=== PATIENT | male | born 1955 | race Caucasian/White ===

== ENCOUNTER 2021-02-15 11:02 | Observation (INO) | payer MEDICARE ==
[2021-02-15] MEDS ORDERED: Aspirin Chewable 81 MG TAB ONE (11:37)
[2021-02-15] MEDS ORDERED: Nitroglycerin 2% Ointment 1 INCH/1 GM Packet ONE (11:37)
[2021-02-15 12:03] LABS: #Basophils 0.1 10x3/uL (0.0-0.2); #Eosinphils 0.1 10x3/uL (0.0-0.5); %Basophils 0.6 % (0.0-2.0); %Eosinophils 0.7 % (0.0-6.0); %Lymphocytes 30.5 % (18.0-47.0); %Monocytes 7.2 % (0.0-10.0); Hemoglobin 14.1 g/dL (13.5-17.5); Mean Corpuscular HGB CONC 31.1 g/dL (32.0-36.0); Mean Corpuscular Hemoglobin 28.2 pg (27.0-33.0); Mean Corpuscular Volume 90.8 fl (81.2-95.1); Mean Platelet Volume 9.3 fl (7.4-10.4); Platelet Count 341 10x3/uL (150-450); RBC Distribution Width 13.9 % (11.5-14.5); White Blood Cell (WBC) Count 13.8 10x3/uL (3.5-10.5)
[2021-02-15 12:21] LABS: ALT (SGPT) 23 U/L (8-55); AST (SGOT) 15 U/L (5-34); Albumin 4.1 g/dL (3.4-4.8); Alkaline Phosphatase 108 U/L (40-110); Anion Gap 17 mmol/L (10-20); BUN (Urea Nitrogen) 14 mg/dL (8.4-25.7); Bilirubin, Total 0.4 mg/dL (0.2-1.2); Calc. Creatinine Clearance 0 mL/min (70-130); Calcium 9.8 mg/dL (7.8-10.44); Carbon Dioxide 23 mmol/L (23-31); Chloride 103 mmol/L (98-107); Globulin 4.9 g/dL (2.4-3.5); Glucose 156 mg/dL (80-115); Potassium 3.9 mmol/L (3.5-5.1); Sodium 139 mmol/L (136-145)
[2021-02-15] MEDS ORDERED: Ondansetron PF 4 MG/2 ML Vial ONE (12:47)
[2021-02-15] MEDS ORDERED: Morphine 4 MG/ML VIAL ONE (12:47)
[2021-02-15] MEDS ORDERED: HYDROcodone/Acetaminophen 7.5/325 mg Tablet PO PRN (13:34)
[2021-02-15] MEDS ORDERED: Ondansetron PF 4 MG/2 ML Vial IVP PRN (13:34)
[2021-02-15] MEDS ORDERED: Nitroglycerin 0.4 MG TAB (25 Tab Bottle) SL PRN (13:39)
[2021-02-15] MEDS ORDERED: Enoxaparin Sodium 40 MG/0.4 ML SYRINGE SC SCH ×2 (13:45→17:00)
[2021-02-15] MEDS ORDERED: Lactated Ringer's 1,000 ML IV SCH (14:00)
[2021-02-15 14:42] LABS: Troponin I 0.026 ng/mL (< 0.028)
[2021-02-15 15:58] VITALS: BMI 42.9
[2021-02-15 17:56] LABS: Troponin I 0.339 ng/mL (< 0.028)
[2021-02-15] MEDS: Acetaminophen 325 MG TAB PO PRN ×2 (19:24→22:50)
[2021-02-15 20:41] LABS: Hemoglobin A1c 7.2 % (4.0-6.0)
[2021-02-15] MEDS: Famotidine/PF 20 mg/2ml Vial SLOW IVP SCH (21:56)
[2021-02-15] MEDS: Metoprolol Tartrate 25 MG TAB PO SCH (21:56)
[2021-02-15] MEDS: Nitroglycerin 2% Ointment 1 INCH/1 GM Packet TOP SCH (21:56)
[2021-02-16 00:48] LABS: CKMB 173.1 ng/mL (0-6.6)
[2021-02-16] MEDS ORDERED: Enoxaparin Sodium 40 MG/0.4 ML SYRINGE SC SCH ×2 (01:00→09:00)
[2021-02-16] MEDS ORDERED: Enoxaparin Sodium 100 MG/ML SYRINGE SC SCH ×2 (01:00→09:00)
[2021-02-16] MEDS ORDERED: Enoxaparin Sodium 60 MG/0.6 ML SYRINGE SC SCH ×2 (01:00→01:15)
[2021-02-16 03:47] LABS: #Basophils 0.1 10x3/uL (0.0-0.2); #Eosinphils 0.1 10x3/uL (0.0-0.5); #Neutrophils 9.5 10x3/uL (1.5-8.4); %Basophils 0.4 % (0.0-2.0); %Eosinophils 0.7 % (0.0-6.0); %Lymphocytes 21.4 % (18.0-47.0); %Monocytes 7.5 % (0.0-10.0); %Neutrophils 69.6 % (40.0-75.0); Hemoglobin 12.6 g/dL (13.5-17.5); Mean Corpuscular HGB CONC 30.6 g/dL (32.0-36.0); Mean Corpuscular Hemoglobin 27.9 pg (27.0-33.0); Mean Corpuscular Volume 91.4 fl (81.2-95.1); Mean Platelet Volume 9.2 fl (7.4-10.4); Platelet Count 288 10x3/uL (150-450); RBC Distribution Width 14.1 % (11.5-14.5); Red Blood Cell (RBC) Count 4.51 10x6/uL (4.32-5.72); White Blood Cell (WBC) Count 13.7 10x3/uL (3.5-10.5)
[2021-02-16 04:01] LABS: Prothrombin Time 10.9 sec (9.5-12.1)
[2021-02-16 04:09] LABS: Anion Gap 12 mmol/L (10-20); BUN (Urea Nitrogen) 14 mg/dL (8.4-25.7); Calc. Creatinine Clearance 92 mL/min (70-130); Calcium 8.6 mg/dL (7.8-10.44); Carbon Dioxide 26 mmol/L (23-31); Cardiac Risk 4.8 (Less than 4.5); Chloride 104 mmol/L (98-107); Cholesterol 144 mg/dl (< 200 Desired); Glucose 113 mg/dL (80-115); HDL Cholesterol 30 mg/dL (>60 Neg Risk); LDL Cholesterol, Calculated 96 mg/dL; Potassium 4.3 mmol/L (3.5-5.1); Sodium 138 mmol/L (136-145); Triglycerides 90 mg/dL (Less than 150)
[2021-02-16] MEDS: Nitroglycerin 2% Ointment 1 INCH/1 GM Packet TOP SCH ×2 (06:21→15:15)
[2021-02-16 06:54] LABS: CKMB 282.8 ng/mL (0-6.6)
[2021-02-16] MEDS ORDERED: Aspirin 81 mg Enteric Coated Tablet PO SCH (09:00)
[2021-02-16] MEDS ORDERED: Heparin 10,000 UNITS/ 10 ML VIAL ONE (09:21)
[2021-02-16] MEDS ORDERED: Lidocaine 1% (PF) 30 ML VIAL ONE (09:21)
[2021-02-16] MEDS ORDERED: Nitroglycerin 50 MG/250 ML BOT 250 ML ONE (09:21)
[2021-02-16] MEDS ORDERED: Adenosine 6 MG/2 ML VIAL ONE (09:21)
[2021-02-16] MEDS ORDERED: Sodium Chloride 0.9% 1,000 ML ONE (09:22)
[2021-02-16 09:26] LABS: SARS-CoV-2 NAA Rapid Test Not Detected (NotDetected)
[2021-02-16] MEDS: Famotidine/PF 20 mg/2ml Vial SLOW IVP SCH (09:45)
[2021-02-16] MEDS: Metoprolol Tartrate 25 MG TAB PO SCH (09:45)
[2021-02-16] MEDS ORDERED: Fentanyl 100 MCG/2 ML VIAL ONE (10:22)
[2021-02-16] MEDS ORDERED: Midazolam HCl 5 mg/5 ml Vial ONE (10:22)
[2021-02-16] MEDS ORDERED: Nitroglycerin 0.4 MG TAB (25 Tab Bottle) SL PRN (11:57)
[2021-02-16] MEDS ORDERED: Sodium Chloride 0.9% 200 ML IV PRN (11:57)
[2021-02-16] MEDS ORDERED: Acetaminophen/Codeine 30-300mg Tablet PO PRN ×2 (11:57)
[2021-02-16] MEDS ORDERED: Sodium Chloride 0.9% 1,000 ML IV SCH (12:00)
[2021-02-16 13:54] LABS: CKMB 329.4 ng/mL (0-6.6)
[2021-02-16 17:17] VITALS: BP 119/74; TEMP 99
[2021-02-16] MEDS ORDERED: Rosuvastatin 20 MG TAB PO SCH (21:00)
== END 2021-02-16 18:45 | disposition short-term general hospital (02) ==
LOC: CSHERS 11:02 → CSHTELE 15:24
PROVIDERS: ADMIT Internal Medicine; ATTEND Physician Assistant Medical
DX: I21.4 Non-ST elevation (NSTEMI) myocardial infarction (principal); I11.0 Hypertensive heart disease with heart failure; I50.41 Acute combined systolic (congestive) and diastolic (congestive) heart failure; E11.9 Type 2 diabetes mellitus without complications; N17.9 Acute kidney failure, unspecified; D72.829 Elevated white blood cell count, unspecified; E66.9 Obesity, unspecified; Z87.891 Personal history of nicotine dependence; Z77.22 Contact with and (suspected) exposure to environmental tobacco smoke (acute) (chronic); Z79.899 Other long term (current) drug therapy; Z79.82 Long term (current) use of aspirin
CPT/HCPCS: 36415; 71045; 80048; 80053; 80061; 82553; 83036; 83880; 84484; 85025; 85610; 85730; 93005; 93010; 93306; J0153; J1644; J1650; J2001; J2250; J2270; J2405; J3010; J7050; J7120; S0028; U0002

== ENCOUNTER → 2024-11-18 | Day surgery (SDC) | payer MEDICARE ==
[~2024-11-18] MED LIST: Adenosine 6 mg (2 mL) VIAL ONE; Aspirin 325 MG TAB ONE; Heparin 10,000 UNITS/ 10 ML VIAL ONE; Iopamidol 300 61% 100 ML VIAL FS ONE; Lidocaine 1% (PF) 30 ML VIAL ONE; Nitroglycerin 50 MG/250 ML BOT 0 ML ONE
[2024-11-18 08:24] LABS: #Basophils 0.08 10x3/uL (0.0-0.2); #Eosinophils 0.22 10x3/uL (0.0-0.5); #Monocytes 0.80 10x3/uL (0.0-1.1); #Neutrophils 6.59 10x3/uL (1.5-8.4); %Basophils 0.8 % (0.0-2.0); %Eosinophils 2.2 % (0.0-6.0); %Lymphocytes 23.6 % (18.0-47.0); %Monocytes 7.9 % (0.0-10.0); %Neutrophils 65.2 % (40.0-75.0); Hematocrit 42.5 % (38.8-50.0); Hemoglobin 13.1 g/dL (13.5-17.5); Mean Corpuscular Hemoglobin 27.6 pg (27.0-33.0); Mean Corpuscular Volume 89.5 fL (81.2-95.1); Platelet Count 298 10x3/uL (150-450); Red Blood Cell (RBC) Count 4.75 10x6/uL (4.32-5.72); White Blood Cell (WBC) Count 10.11 10x3/uL (3.5-10.5)
[2024-11-18 08:50] LABS: INR-International Normal Ratio 1.0; Prothrombin Time 10.8 sec (9.5-12.1)
[2024-11-18 08:55] LABS: Anion Gap 19 mmol/L (10-20); BUN (Urea Nitrogen) 13 mg/dL (8.4-25.7); Calc. Creatinine Clearance 0 mL/min (70-130); Calcium 8.7 mg/dL (7.8-10.44); Carbon Dioxide 18 mmol/L (23-31); Chloride 107 mmol/L (98-107); Glucose 154 mg/dL (80-115); Potassium 4.5 mmol/L (3.5-5.1); Sodium 139 mmol/L (136-145)
== END ==
LOC: CSHSDC 07:42
PROVIDERS: ATTEND Specialist
PROC: 02H Heart and Great Vessels, Insertion (ICD-10-PCS; principal; 2024-11-18)
DX: I25.118 Atherosclerotic heart disease of native coronary artery with other forms of angina pectoris (principal); I50.32 Chronic diastolic (congestive) heart failure; E78.2 Mixed hyperlipidemia; E11.59 Type 2 diabetes mellitus with other circulatory complications; E66.01 Morbid (severe) obesity due to excess calories; Z79.82 Long term (current) use of aspirin; Z79.84 Long term (current) use of oral hypoglycemic drugs; Z79.85 Long-term (current) use of injectable non-insulin antidiabetic drugs; Z79.899 Other long term (current) drug therapy
CPT/HCPCS: 36216; 36225; 80048; 85025; 85610; 93005; 93459; C1760; C1769; J1644; J2250; J3010; 99152; 99153; J0153; Q9967

== ENCOUNTER 2024-11-19 09:43 | Emergency (ER) | payer MEDICARE | END 2024-11-19 11:34 | disposition home or self-care (01) | LOC: CSHERS 09:43 | DX: S93.401A Sprain of unspecified ligament of right ankle, initial encounter (principal); I25.10 Atherosclerotic heart disease of native coronary artery without angina pectoris; Z79.82 Long term (current) use of aspirin; Z55.6 Problems related to health literacy; X50.1XXA Overexertion from prolonged static or awkward postures, initial encounter; Y92.009 Unspecified place in unspecified non-institutional (private) residence as the place of occurrence of the external cause | CPT/HCPCS: 29515 ==